=== PATIENT | male | born 1965 | race Caucasian/White ===

== ENCOUNTER 2018-09-24 11:29 | Emergency (ER) | payer BC, SELFPAY ==
[2018-09-24 11:30] VITALS: BP 100/80; PULSE 70; RESP 18; TEMP 36.7; O2SAT 95; BMI 36.9
--- NOTE | 2018-09-24 11:43 | EKG12_ITS ---
Test Reason : SYNCOPE Blood Pressure : / mmHG Vent. Rate : 064 BPM Atrial Rate : 064 BPM P-R Int : 164 ms QRS Dur : 158 ms QT Int : 468 ms P-R-T Axes : 043 070 041 degrees QTc Int : 482 ms Normal sinus rhythm Right bundle branch block Cannot rule out Inferior infarct , age undetermined Abnormal ECG Confirmed by JUNE XIE, JOHN ([id number]), society editor MIGUEL PEPPER ([id number] on 09/27/2018 2:35:41 PM Referred By: REAL Confirmed By:JOHN WATKINS MD
--- NOTE | 2018-09-24 11:43 | RAD_ITS ---
STUDY: X-RAY CHEST REASON FOR EXAM: Male, 53 years old. Chest pain. TECHNIQUE: Single AP portable view of the chest. COMPARISON: Prior comparison studies are not available for review at this time. FINDINGS: There is a small granuloma in the right lower lung. No focal infiltrate is seen. There is no demonstrated pleural abnormality. Normal size heart. Normal mediastinum and el. Normal visualized pulmonary arteries. Normal visualized aortic arch and descending thoracic aorta. The thoracic spine is somewhat obscured by the mediastinum. Normal visualized ribs, clavicles, and shoulders. There is no demonstrated abnormality of the visualized soft tissue structures of the upper abdomen. RAD/Chest 1 View (Portable) IMPRESSION: No active pulmonary disease. Electronically Signed: Ezio Willoughby MD at 12:13 EST Tel , Service support ,
--- NOTE | 2018-09-24 11:54 | NURSING ---
NO OLD EKGS
[2018-09-24] MEDS: Ondansetron 4 MG/2 ML Vial IV ×2 (12:05→13:51)
[2018-09-24 12:14] LABS: Absolute Lymphocyte Count 0.73 X10^3/ul (0.83-4.51); Basophil# 0.02 X10^3/uL; Basophil% 0.2 % (0-1); Eosinophil# 0.15 X10^3/uL; Eosinophils% 1.6 % (0-5); Hematocrit 45.9 % (40-54); Hemoglobin 15.5 g/dl (13.0-16.5); Lymphocyte # 0.73 X10^3/ul (4.0); Lymphocyte % 7.6 % (19-41); Mean Corp Hgb Conc 33.8 g/gl (32-36); Mean Corpuscular Hgb 30.6 pg (27.0-32.0); Mean Corpuscular Volume 90.7 fL (80-94); Mean Platelet Vol. 10.6 fl (6.2-12.0); Monocyte# 0.69 X10^3/uL; Monocyte% 7.2 % (0-10); Neutrophil % 83.1 % (47-70); Platelet Count 170 K/mm3 (150-450); RBC Distribution Width SD 42.2 fl (35.1-43.9); Red Blood Count 5.06 M/mm3 (4.6-6.2); White Blood Count 9.6 K/mm3 (4.4-11.0)
[2018-09-24 12:15] LABS: POSITIVE COUNT NO; POSITIVE DIFFERENTIAL NO; POSITIVE MORPHOLOGY NO
[2018-09-24 12:29] LABS: D-Dimer Quantitative (DVT/PE) < 0.27 FEU/ug/m (0.27-0.49)
[2018-09-24 12:34] LABS: Anion Gap 12 (5-15); BUN 24 mg/dL (7-18); BUN/Creat Ratio 17.9 RATIO (10-20); Calcium,Total 9.2 mg/dL (8.5-10.1); Chloride 105 mmol/L (98-107); Creatinine, Serum 1.34 mg/dL (0.70-1.30); EST Glomerular Filtration Rate 59 mL/min (>60); Est Glom Filt Rate - Afr Amer 71 mL/min (>60); Estimated Creatinine Clearance 62.29 ml/min; Glucose 99 mg/dL (74-106); Potassium 4.3 mmol/L (3.5-5.1); Sodium Level 146 mmol/L (136-145)
[2018-09-24 13:02] VITALS: BP 124/63; PULSE 71; RESP 16; O2SAT 95
[2018-09-24] MEDS: 0.9% Normal Saline 1,000 ML 150 ML IV (13:06)
--- NOTE | 2018-09-24 13:14 | ED.RN ---
ASA HELD DUE TO NAUSEA AND VOMITING
--- NOTE | 2018-09-24 13:36 | ED.DCSUM_ITS ---
- ER Visit Summary Date of Service: 09/24/18 Chief Complaint: Passed out at work History of Present Illness: The patient is a 53 M who felt ill at work this morning. He states he got hot, clammy, sweaty. Had a brief syncopal episode followed by nausea, vomiting, diarrhea. He did have some slight chest pressure. Patient has a history of prior AK and has 2 cardiac stents. Physical Examination: Vital signs unremarkable. Patient sitting upright in bed. He is in no acute distress. Head neck examination normal. Heart is regular rate and rhythm. Lungs sounds clear. Abdomen soft nontender. Neuro exam reveals no focal deficits. Test Results: Portable chest x-ray is unremarkable. EKG is sinus at 64 with a right bundle branch block. No acute ST change. CBC was normal white count 9.6 with slight left shift. Chemistry studies reveal BUN of 24 and creatinine 1.34. No prior values available for comparison. Troponin and d-dimer are both unremarkable. Emergency Department Course and Treatment: Patient did develop recurrent vomiting while the emergency room. He was given IV fluids and Zofran. At this time symptoms are improved. Patient states he plans to take a taxi back to work to get his truck, then tells me he is going to finish his shift at work. He believes he got food poisoning from a breakfast pizza he ate on the way to work this morning. At this point I believe his symptoms are consistent with gastroenteritis and vasovagal syncope, not cardiac etiology. He will be discharged with a prescription for Zofran. Treatment Plan: [] Disposition: Discharge Impression: 1. Gastroenteritis 2. Vasovagal syncope This note was generated with [employer] dictation software. It may contain incorrect words, spelling, and punctuation that were not noted in review of the chart prior to signing ED Disposition - Plan for ED Patient: Chief Complaint: Syncope Referrals: Care Physician,No Primary [Primary Care Provider] -
--- NOTE | 2018-09-24 13:36 | ED.DEP ---
ED Disposition - Plan for ED Patient: Disposition: Home or Assisted Living Chief Complaint: Syncope Instructions: ED Syncope Vasovagal, ED Gastroenteritis Vs Food Poison Prescriptions: Ondansetron [Zofran Odt] 4 mg PO Q8H PRN PRN #10 tablet PRN Reason: Nausea
[2018-09-24 13:51] VITALS: BP 139/92; PULSE 74; RESP 18; O2SAT 98
== END 2018-09-24 14:00 | disposition home or self-care (01) ==
PROVIDERS: Emergency Provider Emergency Medicine
DX: K52.9 Noninfective gastroenteritis and colitis, unspecified (principal); R55 Syncope and collapse; I45.10 Unspecified right bundle-branch block; E66.9 Obesity, unspecified; I10 Essential (primary) hypertension; E78.00 Pure hypercholesterolemia, unspecified; I25.2 Old myocardial infarction; Z95.5 Presence of coronary angioplasty implant and graft
CPT/HCPCS: 71045; 80048; 84484; 85025; 85379; 93005; 96361; 96374; 96376; 99285; J7030; J7040; A4216; J2405